=== PATIENT | male | born 1985 | race Caucasian/White ===

== ENCOUNTER 2018-01-22 12:07 | Emergency (ER) | payer BC ==
[2018-01-22 12:30] LABS: BASOPHILS % (AUTO) 3 % (0-3); EOSINOPHILS % (AUTO) 2 % (0-9); HEMATOCRIT 45 % (39-53); HEMOGLOBIN 15.6 gm/dl (13.5-17.7); LYMPHOCYTES % (AUTO) 25.6 % (10-50); MEAN CORPUSCULAR HEMOGLOBIN 30.7 pg (27.0-32.0); MEAN CORPUSCULAR HGB CONC 34.9 gm/dl (32.0-36.0); MEAN CORPUSCULAR VOLUME 88 fL (80-100); NEUTROPHILS % (AUTO) 60.4 % (37-80)
[2018-01-22] MEDS ORDERED: LORAZEPAM 2 MG/ML 10ML MDV 2 MG/ML VIAL IV ONE (12:36)
[2018-01-22 12:41] VITALS: TEMP 98.8
[2018-01-22 12:46] LABS: ALBUMIN 4.6 gm/dl (3.4-5.0); ALKALINE PHOSPHATASE 60 IU/L (46-116); ALT 32 IU/L (14-63); AST 34 IU/L (15-37); BLOOD UREA NITROGEN 14 mg/dl (7-18); CALCIUM 9.6 mg/dl (8.5-10.1); CARBON DIOXIDE 29.5 mEq/L (21-32); CHLORIDE 98 mMol/L (98-107); GLOM FILT RATE 71 mL/min (>60); GLUCOSE 112 mg/dl (74-106); POTASSIUM 3.5 mMol/L (3.5-5.1); SODIUM 137 mMol/L (136-145); TOTAL PROTEIN 8.8 gm/dl (6.4-8.2); TROP I < 0.017 ng/ml (0.000-0.056)
[2018-01-22] MEDS ORDERED: LORAZEPAM 2 MG/ML SOL ONE (12:51)
[2018-01-22 15:06] VITALS: PULSE 73
[2018-01-22 15:07] VITALS: BP 125/78; RESP 20; O2SAT 98
== END 2018-01-22 14:55 | disposition home or self-care (01) ==
LOC: ED 12:07
DX: R07.89 Other chest pain (principal); R06.02 Shortness of breath; R00.0 Tachycardia, unspecified
CPT/HCPCS: 36415; 71045; 80053; 84484; 85025; 85378; 93005; 96374; 99283; 99285; J2060